=== PATIENT | male | born 1975 | race Two or more races ===

== ENCOUNTER 2019-06-22 14:53 | Emergency (ER) | payer OTHER ==
[~2019-06-22] VITALS: Ht 180.3 cm; Wt 113.4 kg
[2019-06-22 17:28] VITALS: BP 130/90
[2019-06-22] MEDS ORDERED: KETOROLAC TROMETH 60MG/2ML VIAL IM ONE (17:30)
== END 2019-06-22 17:48 | disposition home or self-care (01) ==
LOC: ER 14:53
DX: S33.5XXA Sprain of ligaments of lumbar spine, initial encounter (principal); X50.1XXA Overexertion from prolonged static or awkward postures, initial encounter; Y93.89 Activity, other specified; Y92.89 Other specified places as the place of occurrence of the external cause; Y99.8 Other external cause status
CPT/HCPCS: 72100; 96372; 99283; J1885